=== PATIENT | female | born 1970 | race Caucasian/White ===

== ENCOUNTER 2016-05-13 21:25 | Emergency (ER) | payer OTHER ==
[~2016-05-13] VITALS: Ht 160 cm; Wt 158.8 kg
--- NOTE | ~2016-05-13 | EKG ---
[address] [address] ELECTROCARDIOGRAM REPORT Name: LATANYA VAZQUEZ [id number] Admission: 05/13/16 Attend Phys: Discharge: 05/13/16 Date of : 66 Report #: [id number] THIS REPORT FOR: //name// [facility] ED Test Date: 2016-05-13 Test Time: 22:05:45 Pat Name: LATANYA VAZQUEZ Department: Room: Gender: F Box Spinner: john : 1970 Requested By: Aye Miller Order Number: [id number] MD: Dez Longoria Measurements Intervals [place] Rate: 71 P: 39 MN: 153 QRS: -32 QRSD: 86 T: 50 QT: 395 QTc: 430 Interpretive Statements Sinus rhythm Left axis deviation Low voltage, precordial leads No previous ECG available for comparison Electronically Signed On 05-14-2016 15:30:22 CDT by Dez Longoria [email or web address] <ELECTRONICALLY SIGNED> By: Dez Longoria MD 05/14/16 1530 2204 04 Dez Longoria MD /RUSSELL
[~2016-05-13 21:25] MED LIST: ALBUTEROL NEB; ALBUTEROL2.5 MG/0.1 INH; AMLODIPINE-BEN1 EAC3 PO; BACTRIM DS TAB1 EACH PO; FLONASE; HYDROCHLOROTH12.5 MG PO; HYDROCODONE-AP1 EAC6 PO; LEVAQUIN 500 M500 M1 PO; MEDROL DOSPAK21 TAB PO; NEXIUM20 M1 PO; PERCOCET 5-3251 EACH PO; PREDNISONE 20 M20 M1 PO; PRINIVIL20 MG PO; ULTRAM 50MG TAB50 MG PO; XANAX 0.25 MG0.25 MG PO; ZOFRAN ODT4 MG PO; ZPAK PO
[2016-05-13] MEDS ORDERED: NAPROSYN500 MG PO (22:12)
[2016-05-13 22:48] VITALS: BP 137/83
== END 2016-05-13 22:49 | disposition home or self-care (01) ==
LOC: ER 21:25
DX: M19.012 Primary osteoarthritis, left shoulder (principal); J45.909 Unspecified asthma, uncomplicated; G89.29 Other chronic pain; Z98.890 Other specified postprocedural states; Z88.1 Allergy status to other antibiotic agents; Z88.8 Allergy status to other drugs, medicaments and biological substances